=== PATIENT | female | born 1960 | race African-American/Black ===

== ENCOUNTER 2018-01-05 14:55 | Emergency (ER) | payer MEDICAID ==
[~2018-01-05] VITALS: Ht 167.6 cm; Wt 120.0 kg
[2018-01-05] MEDS ORDERED: ASPI-986 PO (15:02)
[2018-01-05] MEDS ORDERED: ATEN-42 PO (15:02)
[2018-01-05] MEDS ORDERED: SERT25TA PO (15:02)
[2018-01-05 16:28] LABS: HEMATOCRIT. 39.6 % (36.0-48.0); MEAN CORPUSCULAR VOLUME 91.7 fL (81.0-99.0); MEAN PLATELET VOLUME 9.1 fl (7.4-10.4); PLATELET 170 x1000/uL (130-400); RED BLOOD CELL COUNT 4.32 mill/uL (4.2-5.4); RED CELL DISTRIBUTION WIDTH 14.6 % (11.6-14.6)
[2018-01-05 16:29] LABS: CHLORIDE 106 mEq/L (98-107)
[2018-01-05 16:31] LABS: INR 0.9; PROTHROMBIN TIME 9.9 sec (9.4-11.6)
[2018-01-05 17:28] LABS: PLATELET ESTIMATE NORMAL
[2018-01-06 06:00] VITALS: BP 136/88
== END 2018-01-06 06:21 | disposition home or self-care (01) ==
LOC: ER 15:03
DX: R06.00 Dyspnea, unspecified (principal); I10 Essential (primary) hypertension; J45.909 Unspecified asthma, uncomplicated; I48.91 Unspecified atrial fibrillation; K44.9 Diaphragmatic hernia without obstruction or gangrene; Z88.0 Allergy status to penicillin; Z79.82 Long term (current) use of aspirin
CPT/HCPCS: 36415; 71045; 71250; 80053; 83880; 84484; 85025; 85610; 93005; 99285; Z7610

== ENCOUNTER 2018-10-26 18:41 | Inpatient (IN) | payer MEDICAID ==
[~2018-10-26] VITALS: Ht 157.5 cm; Wt 148.3 kg
[~2018-10-26 18:41] MED LIST: ASPI-986 PO; ATEN-42 PO; SERT25TA PO
[2018-10-26] MEDS ORDERED: FAMOTIDINE 20MG/2ML VIAL IV STA (23:01)
[2018-10-26] MEDS ORDERED: SODIUM CHLORIDE 0.9% 1,000 ML IV ONE (23:01)
[2018-10-26] MEDS ORDERED: ONDANSETRON HCL 4MG/2ML INJ IV STA (23:01)
[2018-10-26] MEDS ORDERED: MORPHINE SULFATE 4 MG/ML CPJ (NOT FOR IM USE) IV STA (23:01)
[2018-10-27 00:03] LABS: BASOPHILS % 0.3 % (0.0-2.0); EOSINOPHILS % 1.8 % (0.0-5.0); HEMATOCRIT. 44.7 % (36.0-48.0); HEMOGLOBIN. 14.8 g/dL (12.0-16.0); MEAN CORPUSCULAR HEMOGLOBIN 30.6 pg (28.0-32.0); MEAN CORPUSCULAR VOLUME 92.4 fL (81.0-99.0); MONOCYTES % 5.7 % (2.0-8.0); NEUTROPHILS % 72.2 % (40.0-76.0); PLATELET 217 x1000/uL (130-400); RED BLOOD CELL COUNT 4.84 mill/uL (4.2-5.4); RED CELL DISTRIBUTION WIDTH 14.3 % (11.6-14.6)
[2018-10-27 00:05] LABS: CHLORIDE 107 mEq/L (98-107)
[2018-10-27 00:07] LABS: PROTHROMBIN TIME 10.5 sec (9.1-11.1)
[2018-10-27] MEDS ORDERED: IOHEXOL-300 100 ML BOTTLE ONE (03:59)
[2018-10-27 10:00] VITALS: BP 108/40
[2018-10-27 10:10] VITALS: BP 83/50
[2018-10-27 10:24] VITALS: BP 108/40
[2018-10-27] MEDS ORDERED: ATOR40TA70 MT (11:44)
[2018-10-27] MEDS ORDERED: METO-539 PO ×2 (11:44→11:45)
[2018-10-27] MEDS ORDERED: ACETAMINOPHEN 325MG TABLET PO PRN (11:45)
[2018-10-27] MEDS ORDERED: DOCUSATE SODIUM 250MG CAPSULE PO PRN (11:45)
[2018-10-27] MEDS ORDERED: ONDANSETRON HCL 4MG/2ML INJ IV PRN (11:45)
[2018-10-27] MEDS ORDERED: MORPHINE SULFATE 4 MG/ML CPJ (NOT FOR IM USE) IV PRN (11:45)
[2018-10-27] MEDS ORDERED: LISI-604 PO (11:46)
[2018-10-27] MEDS ORDERED: AMLO10TA80 PO (11:47)
[2018-10-27 12:00] VITALS: BP 102/56
[2018-10-27] MEDS ORDERED: PNEUMOCOCCAL 23-VAL P-SAC VAC 0.5 ML IM ONE (13:15)
[2018-10-27] MEDS ORDERED: INFLUENZA VIRUS VACCINE(AFLURIA) 0.5ML SYR IM ONE (13:30)
[2018-10-27 16:00] VITALS: BP 93/65
[2018-10-27 20:00] VITALS: BP 118/68
[2018-10-28] VITALS: BP 105/73
[2018-10-28 03:09] LABS: CLARITY URINE CLEAR (CLEAR); COLOR URINE YELLOW (YELLOW); KETONES URINE NEGATIVE (NEGATIVE); LEUKOCYTE ESTERASE URINE 2+ (NEGATIVE); NITRITE URINE POSITIVE (NEGATIVE); OCCULT BLOOD URINE 2+ (NEGATIVE); PROTEIN URINE NEGATIVE (NEGATIVE); SPECIFIC GRAVITY URINE 1.016 (1.005-1.030); UROBILINOGEN URINE 0.2 E.U./dL (0.2-1.0)
[2018-10-28 03:30] LABS: METHADONE URINE SCREEN NEGATIVE (NEGATIVE); OPIATES URINE SCREEN PRESUMTIVE POSITIVE (NEGATIVE)
[2018-10-28 03:31] LABS: *AMPHETAMINES SCREEN URINE NEGATIVE (NEGATIVE); *BARBITURATES SCREEN URINE NEGATIVE (NEGATIVE); *BENZODIAZEPINES SCREEN URINE NEGATIVE (NEGATIVE); *COCAINE SCREEN URINE NEGATIVE (NEGATIVE); CANNABINOID URINE SCREEN NEGATIVE (NEGATIVE); PHENCYCLIDINE URINE SCREEN NEGATIVE (NEGATIVE)
[2018-10-28 04:32] VITALS: BP 115/71
[2018-10-28] MEDS: OMEPRAZOLE 20MG CAPSULE EXTENDED RELEASE PO SCH (05:57)
[2018-10-28 08:00] VITALS: BP 107/82
[2018-10-28 10:25] LABS: BASOPHILS % 0.2 % (0.0-2.0); EOSINOPHILS % 3.3 % (0.0-5.0); HEMOGLOBIN. 13.5 g/dL (12.0-16.0); LYMPHOCYTES % 24.8 % (20.0-50.0); MEAN CORPUSCULAR VOLUME 92.9 fL (81.0-99.0); MEAN PLATELET VOLUME 9.3 fl (7.4-10.4); MONOCYTES % 4.7 % (2.0-8.0); PLATELET 200 x1000/uL (130-400); RED BLOOD CELL COUNT 4.52 mill/uL (4.2-5.4); RED CELL DISTRIBUTION WIDTH 14.1 % (11.6-14.6)
[2018-10-28 10:35] LABS: CHLORIDE 106 mEq/L (98-107)
[2018-10-28] MEDS ORDERED: SODIUM CHLORIDE 0.9% 1,000 ML IV ONE (11:30)
[2018-10-28 12:00] VITALS: BP 126/79
[2018-10-28] MEDS: LEVOFLOXACIN 500MG PREMIX 100 ML IV SCH (13:48)
[2018-10-28 16:00] VITALS: BP 126/80
[2018-10-28] MEDS: ASPIRIN 81MG TABLET PO SCH (18:20)
[2018-10-28 20:00] VITALS: BP 132/70
[2018-10-28] MEDS ORDERED: CARVEDILOL 3.125 MG TABLET PO SCH (21:00)
[2018-10-29] VITALS: BP 154/85
[2018-10-29 04:00] VITALS: BP 136/96
[2018-10-29] MEDS: OMEPRAZOLE 20MG CAPSULE EXTENDED RELEASE PO SCH (05:45)
[2018-10-29 08:00] VITALS: BP 122/64
[2018-10-29] MEDS: ASPIRIN 81MG TABLET PO SCH (08:54)
[2018-10-29] MEDS ORDERED: SERTRALINE HCL 25MG TABLET PO SCH (09:00)
[2018-10-29] MEDS ORDERED: LISINOPRIL 20MG TABLET PO SCH (09:00)
[2018-10-29] MEDS ORDERED: MEDICATION NOT ON FORMULARY EA (Lisinopril 20 MG) PO SCH (09:00)
[2018-10-29] MEDS ORDERED: AMLODIPINE 10MG TABLET PO SCH (09:00)
[2018-10-29] MEDS ORDERED: MEDICATION NOT ON FORMULARY EA (Metoprolol Tartrate 50 MG) PO SCH (09:00)
[2018-10-29 09:34] LABS: CHLORIDE 108 mEq/L (98-107)
[2018-10-29 12:00] VITALS: BP 149/85
[2018-10-29] MEDS: LEVOFLOXACIN 500MG PREMIX 100 ML IV SCH (12:55)
[2018-10-29 16:00] VITALS: BP 154/90
[2018-10-29 17:41] VITALS: BP 130/82
[2018-10-29] MEDS ORDERED: ATORVASTATIN CALCIUM 40MG TABLET PO SCH (21:00)
== END 2018-10-29 17:30 | disposition home or self-care (01) | DRG 249 ==
LOC: ER 18:41 → 5WST 10-27 02:37 → EDBEDREQ 10-27 02:41 → ENRESERV 10-27 08:48
PROVIDERS: ADMIT Internal Medicine; ATTEND Internal Medicine
DX: A08.4 Viral intestinal infection, unspecified (principal); N17.0 Acute kidney failure with tubular necrosis; E44.1 Mild protein-calorie malnutrition; E66.01 Morbid (severe) obesity due to excess calories; N39.0 Urinary tract infection, site not specified; I48.91 Unspecified atrial fibrillation; I11.9 Hypertensive heart disease without heart failure; I51.7 Cardiomegaly; J45.909 Unspecified asthma, uncomplicated; Z68.43 Body mass index [BMI] 50.0-59.9, adult; Z88.0 Allergy status to penicillin; Z79.899 Other long term (current) drug therapy; Z79.82 Long term (current) use of aspirin
CPT/HCPCS: 36415; 71045; 74176; 80048; 80305; 83605; 90686; 90732; 93005; 93970; 96374; 96375; 99285; C1893; J1956; J2270; J2405; J3490; J7030; Q9967